=== PATIENT | male | born 1960 | race Caucasian/White ===

== ENCOUNTER 2021-09-27 16:38 | Emergency (ER) | payer OTHER ==
[~2021-09-27] VITALS: Ht 205.7 cm; Wt 141.0 kg
[2021-09-27 17:02] VITALS: BP 165/91
[2021-09-27] MEDS ORDERED: ketorolac trometh inj. 60 MG/2 ML VIAL IM ONE (17:10)
[2021-09-27] MEDS ORDERED: HYDROcodone/acetaminophen 10/325mg tab PO ONE (17:10)
[2021-09-27] MEDS ORDERED: orphenadrine citrate 60mg/2ml inj. IM ONE (17:10)
[2021-09-27] MEDS ORDERED: DICL75TA5 PO (17:58)
[2021-09-27] MEDS ORDERED: HYDR-3965 PO (17:58)
[2021-09-27] MEDS ORDERED: PRED10TA23 PO (17:58)
== END 2021-09-27 18:23 | disposition home or self-care (01) ==
LOC: ER 16:40
DX: M54.50 Low back pain, unspecified (principal); M54.10 Radiculopathy, site unspecified; G89.29 Other chronic pain; Z79.899 Other long term (current) drug therapy
CPT/HCPCS: 96372; 99284; J1885; J2360